=== PATIENT | female | born 1940 | race Caucasian/White ===

== ENCOUNTER 2018-02-14 10:59 | Day surgery (SDC) | payer MEDICARE ==
[2018-02-13 17:10] VITALS: BMI 30.5
[2018-02-14] MEDS ORDERED: Midazolam HCl 2 mg/2 ml Vial ONE (12:48)
[2018-02-14] MEDS ORDERED: Fentanyl 100 MCG/2 ML VIAL ONE (12:48)
[2018-02-14 12:49] LABS: #Eosinphils 0.6 thou/uL (0.0-0.7); #Lymphocytes 2.3 thou/uL (1.20-3.40); #Monocytes 0.7 thou/uL (0.11-0.59); #Neutrophils 4.6 thou/uL (1.40-6.50); %Basophils 0.4 % (0.0-1.0); %Eosinophils 7.4 % (0.0-10.0); %Lymphocytes 27.6 % (21.0-51.0); %Monocytes 8.4 % (0.0-10.0); %Neutrophils 56.2 % (42.0-75.0); Hemoglobin 13.6 g/dL (12.0-16.0); Mean Corpuscular HGB CONC 32.1 g/dL (32.0-36.0); Mean Corpuscular Volume 96.6 fl (81.0-99.0); Mean Platelet Volume 6.6 fL (7.4-10.4); Platelet Count 275 thou/uL (130-400); RBC Distribution Width 12.7 % (11.5-14.5); Red Blood Cell (RBC) Count 4.38 mill/uL (4.20-5.40); White Blood Cell (WBC) Count 8.3 thou/uL (4.8-10.8)
[2018-02-14 13:10] LABS: Anion Gap 18 mmol/L (10-20); BUN (Urea Nitrogen) 16 mg/dL (9.8-20.1); Calc. Creatinine Clearance 71 mL/min (70-130); Carbon Dioxide 21 mmol/L (23-31); Chloride 103 mmol/L (98-107); Estimated GFR-MDRD 60; Glucose 154 mg/dL (83-110); Potassium 4.9 mmol/L (3.5-5.1); Sodium 137 mmol/L (136-145)
--- NOTE | 2018-02-14 14:20 | MRI ---
MRI THORACIC SPINE WITHOUT CONTRAST: INDICATIONS: Mid back pain. COMPARISON: Prior MRI of the thoracic spine, dated 06/07/2017. FINDINGS: There is further loss of height involving the T8 vertebral compression fracture, now with approximate ly 75% total loss of body height, with some retropulsion of bone fragments from the posterior margin of T8 causing mild to moderate central canal narrowing with mild ventral contact of the thoracic spin al cord. No definite cord signal abnormality is evident. The compression fracture at T8 with loss of height and posterior retropulsion of bone fragments does induce moderate to severe bilateral neural foraminal narrowing at T8-T9. There is a new inferior endplate compression abnormality without significant loss of height involving the T7 vertebral level. No additional fracture is grossly evident. There is chronic superior endpl ate compression deformity of T10, which is stable from the prior exam. IMPRESSION: 1. Further loss of height of the previously seen T8 vertebral body compression fracture with moderat e to severe bilateral neural foraminal narrowing at T8-T9 and mild to moderate central canal narrowin g. 2. New inferior endplate compression fracture involving T7 without significant loss of height. 3. Chronic superior endplate compression deformity of T10. POS: [facility]
--- NOTE | 2018-02-16 08:53 | EKG ---
Test Reason : PREOP Blood Pressure : / mmHG Vent. Rate : 079 BPM Atrial Rate : 079 BPM P-R Int : 212 ms QRS Dur : 102 ms QT Int : 394 ms P-R-T Axes : 063 094 083 degrees QTc Int : 451 ms Sinus rhythm with 1st degree A-V block Rightward axis Anterior infarct (cited on or before 07-JUN-2017) Abnormal ECG When compared with ECG of 07-JUN-2017 11:36, Premature supraventricular complexes are no longer Present Nonspecific T wave abnormality no longer evident in Inferior leads Nonspecific T wave abnormality, worse in Lateral leads Confirmed by MARGARITA CALDERON MD ([id number]) on 02/16/2018 8:53:27 AM Referred By: ELAINE Confirmed By:MARGARITA CALDERON MD
== END 2018-02-14 15:35 | disposition home or self-care (01) ==
LOC: SDC/OP 10:59
PROVIDERS: ATTEND Specialist
DX: S22.060A Wedge compression fracture of T7-T8 vertebra, initial encounter for closed fracture (principal); Z79.51 Long term (current) use of inhaled steroids; Z79.82 Long term (current) use of aspirin; Z79.4 Long term (current) use of insulin; Z79.899 Other long term (current) drug therapy
CPT/HCPCS: 36415; 72146; 80048; 85025; 93005; 93010; J2250; J3010

== ENCOUNTER 2018-07-22 03:07 | Observation (INO) | payer MEDICARE ==
[2018-07-22 04:24] LABS: #Basophils 0.1 thou/uL (0.0-0.2); #Eosinphils 0.3 thou/uL (0.0-0.7); #Monocytes 0.7 thou/uL (0.11-0.59); #Neutrophils 4.3 thou/uL (1.40-6.50); %Basophils 0.8 % (0.0-1.0); %Eosinophils 4.2 % (0.0-10.0); %Lymphocytes 27.2 % (21.0-51.0); %Neutrophils 58.8 % (42.0-75.0); Mean Corpuscular HGB CONC 32.4 g/dL (32.0-36.0); Mean Corpuscular Hemoglobin 31.5 pg (27.0-31.0); Mean Corpuscular Volume 97.2 fL (78.0-98.0); Mean Platelet Volume 7.4 fL (7.4-10.4); Platelet Count 280 thou/uL (130-400); RBC Distribution Width 12.3 % (11.5-14.5); White Blood Cell (WBC) Count 7.4 thou/uL (4.8-10.8)
[2018-07-22 04:53] LABS: ALT (SGPT) 10 U/L (8-55); AST (SGOT) 13 U/L (5-34); Albumin 4.2 g/dL (3.4-4.8); Alkaline Phosphatase 63 U/L (40-150); Anion Gap 15 mmol/L (10-20); BUN (Urea Nitrogen) 24 mg/dL (9.8-20.1); Bilirubin, Total 0.5 mg/dL (0.2-1.2); Calc. Creatinine Clearance 0 mL/min (70-130); Calcium 9.8 mg/dL (7.8-10.44); Carbon Dioxide 24 mmol/L (23-31); Chloride 102 mmol/L (98-107); Estimated GFR-MDRD 46; Globulin 3.2 g/dL (2.4-3.5); Glucose 195 mg/dL (83-110); Potassium 4.4 mmol/L (3.5-5.1); Protein, Total 7.4 g/dL (6.0-8.3); Sodium 137 mmol/L (136-145)
[2018-07-22] MEDS ORDERED: Sulfameth/Trimethoprim DS 800-160mg TAB ONE (04:54)
--- NOTE | 2018-07-22 04:57 | PDOC.FPRHP ---
- History of Present Illness Chief Complaint: Abdominal pain History of Present Illness: Ms. Hsu presented to the [place] ED with reports of upper abdominal pain, fever/chills, and fatigue. An EKG was ordered and concerning for changes in T waves from previous studies. She was transferred to [facility] ED. Her pain has resolved, she does report multiple sores beneath her pannus that have not resolved as they normally do. The began a week ago and she put her normal salve on them, it did not help this time. She denies N/V/D, SOB, CP, weakness, or syncope. ED Course: CBC, CMP, EKG, wound Cx, BCx, LAx2, Trop/ckmb - Allergies/Adverse Reactions Allergies Allergy/AdvReac Type Severity Reaction Status Date / Time No Known Allergies Allergy Verified 02/13/18 17:10 - Home Medications Medication Instructions Recorded Confirmed Type Insulin NPH Hum/Reg Insulin HM 15 unit SC BID-AC 08/16/14 07/22/18 History [Novolin 70/30] Isosorbide Mononitrate [Imdur ER] 30 mg PO DAILY 08/16/14 07/22/18 History Levothyroxine Sodium 75 mcg PO DAILY 08/16/14 07/22/18 History Lisinopril 5 mg PO DAILY 08/16/14 07/22/18 History Omeprazole 40 mg PO DAILY 08/16/14 07/22/18 History Ranolazine [Ranexa] 500 mg PO BID 08/16/14 07/22/18 History cloNIDine HCl 0.1 mg PO PRN PRN 08/16/14 07/22/18 History metFORMIN HCl 1,000 mg PO BID-WM 08/16/14 07/22/18 History Nitroglycerin [Nitrostat] 0.4 mg SL Q5MIN PRN 03/27/16 07/22/18 History Aspirin [Aspirin Chewable] 81 mg PO DAILY 03/15/17 07/22/18 History Atorvastatin Calcium [Lipitor] 40 mg PO HS 03/15/17 07/22/18 History DULoxetine HCl [Duloxetine HCl] 60 mg PO DAILY 03/15/17 07/22/18 History Amiodarone [Cordarone] 100 mg PO DAILY 07/22/18 07/22/18 History Carvedilol [Coreg] 3.125 mg PO BID 07/22/18 07/22/18 History Celecoxib [Celebrex] 200 mg PO BID 07/22/18 07/22/18 History Cholecalciferol (Vitamin D3) 5,000 unit PO DAILY 07/22/18 07/22/18 History [Vitamin D3] Cyclobenzaprine [Flexeril] 10 mg PO TID 07/22/18 07/22/18 History Furosemide 20 mg PO BID 07/22/18 07/22/18 History Gabapentin 600 mg PO BID 07/22/18 07/22/18 History HYDROcodone Bit/APAP 5/325 [[place] 0.5 tab PO Q6HR PRN 07/22/18 07/22/18 History 5/325] - History PMHx:CAD, DMII, hypothyroid, HLD, HTN, Asthma, depression PSHx: CT w/ stents 2016, CABG, Back surgery FHx: Social: chews and smokes tobacco - Review of Systems General: reports: fever/chills, fatigue. denies: weight/appetite/sleep changes Eyes: reports: vision changes. denies: eye pain ENT: denies: nasal congestion, rhinorrhea Respiratory: denies: cough, shortness of breath Cardiovascular: denies: chest pain, palpitation, edema Gastrointestinal: reports: abdominal pain. denies: nausea, vomiting, diarrhea Genitourinary: denies: incontinence, dysuria Skin: denies: rashes, lesions Musculoskeletal: denies: pain, tenderness Neurological: denies: numbness, syncope, weakness - Vital signs BP: [161/59] HR: [74] RR: [24] Tmax: [98] Pox: [94]% on [RA] Wt: [90.72kg] - Physical Exam Constitutional: NAD, well developed HEENT: normocephalic and atraumatic, grossly normal vision, grossly normal hearing Neck: supple, trachea midline Chest: no-tender to palpation, no lesions Heart: RRR, normal S1/S2, no murmurs/rubs/gallops, pulses present Lungs: CTAB, no respiratory distress, good air movement Abdomen: soft, non-tender Musculoskeletal: normal structure, normal tone Neurological: no focal deficit, CN II-XII intact Skin: no rash/lesions, capillary refill <2 seconds Heme/Lymphatic: no unusual bruising or bleeding, no petechia Psychiatric: normal mood and affect FMR H&P: Results - Labs Result Diagrams: 07/22/18 04:04 07/22/18 04:04 Lab results: WBC 7.4 thou/uL (4.8-10.8) 07/22/18 04:04 Hgb 12.0 g/dL (12.0-16.0) 07/22/18 04:04 Hct 36.9 % (36.0-47.0) 07/22/18 04:04 MCV 97.2 fL (78.0-98.0) 07/22/18 04:04 Plt Count 280 thou/uL (130-400) 07/22/18 04:04 Neutrophils % 58.8 % (42.0-75.0) 07/22/18 04:04 Lactic Acid 2.4 mmol/L (0.5-2.2) H 07/22/18 04:04 FMR H&P: A/P - Problem List (1) Nonspecific ST-T wave electrocardiographic changes Current Visit: Yes Status: Acute Code(s): R94.31 - ABNORMAL ELECTROCARDIOGRAM [ECG] [EKG] (2) Skin infection Current Visit: Yes Status: Acute Code(s): L08.9 - LOCAL INFECTION OF THE SKIN AND SUBCUTANEOUS TISSUE, UNSP (3) Chronic pain syndrome Current Visit: No Status: Acute Code(s): G89.4 - CHRONIC PAIN SYNDROME (4) Diabetes type 2, controlled Current Visit: No Status: Chronic Code(s): E11.9 - TYPE 2 DIABETES MELLITUS WITHOUT COMPLICATIONS (5) Dyslipidemia Current Visit: No Status: Chronic Code(s): E78.5 - HYPERLIPIDEMIA, UNSPECIFIED (6) Hypertension Current Visit: No Status: Chronic Code(s): I10 - ESSENTIAL (PRIMARY) HYPERTENSION - Plan 1. non-specific flattening of T wave, w/o chest pain - change in EKG per [place] ER - significant cardiac hx - trend troponins x3, EKG for chest pain - observation on telemetry 2. skin infection - chronic sores on pannus - Bactrim DS PO - wound care consult 3. Chronic pain syndrome - possible cause of pain 4. DMII - continue home meds 5. HLD - continue home meds 6. HTN - continue home meds Disposition/LOS: down trend troponins, DC on bactrim later today FMR H&P: Upper Level - Pertinent history 78F presents for sores under abdominal and pelvic pannus. She feels they had started developing this week but unsure of onset as she was unable to visualize the area. She endorses subjective chills and fever. She says specifically denies dysuria, sob or chest pain. Her PMHx includes CAD, CT in 2016, DM2, hypothyrodism, hld, HTN, chronic back pain, asthma, obesity, anxiety, depression PSHx: Hysterectomy, back surgery Social: Chews tobacco and smoke tobacco. Smoke 30 year, 1/2 pack a day. - Pertinent findings Gen: Alert, oriented CV: RRR with no apparent m/g/r Resp: CTA bilaterally Abd: Obese, multiple sores on underside of pannus. Largest approximately dime side, erythematous and weeping clear fluid. Sores are macerated skin break down with no obvious infection. There are also sores between her thigh folds EKG: In comparison to previous ekg, there are some new t wave flattening, not associated with t wave elevation/depression Trops: .022>.035 UA: Positive for WBC, bacteria, leuk esterase Creatinine: 1.13 - Plan Date/Time: 07/22/18 0451 I, [Nikolai Ji], have evaluated this patient and agree with findings/plan as outlined by corporate intern resident. Pertinent changes/additions are listed here. 1. Abd sores - Patient is diabetic, will start on bactrim DS for MRSA coverage. Zinc paste to promote wound healing. Nystatin cream to help prevent harris - Not obviously infected at this time 2. Elevated Troponin - Patient EKG and HPI did not suggest cardiac issues. Patient does have PMHx of CAD - Trop incidentally was found to be elevated. Will trend trops for resolution. - Continue Ranexa and Imdur 3. Asymptomatic bacturia - UA suggest infection but patient asymptomatic - Bactrim will cover UTI incidentally. Will not obtain culture as patient is otherwise asymptomatic and treatment not indicated 4. CKD 3 - Elevated creatinine over last 5 months. - Monitor with routine lab, advise hydration. May consider reducing patient's diuretic/discussion with PCP Dr. Florence. Possible that diuretics were added recently and account for her Cr increase. 5. Hypothyrodism - Continue levothyroxine 6. HTN - Continue lisinopril, carvedilol and catapres, may consider reducing diuretics. 7. Depression - Continue cymbalta 8. HLD -Continue atorvastatin 9. Gerd - Continue omeprazole 10: DM2: Continue home med 11: Heart dysrhythmia: Patient can not specify, on amiodarone so likely afib. Follow up with her PCP for clarification. Continue medication at this time, admit to tele.
[2018-07-22 05:36] LABS: Troponin I 0.035 ng/mL (< 0.028)
[2018-07-22] MEDS ORDERED: Zinc Oxide 20% Oint 30 GM TUBE TOP PRN (06:33)
[2018-07-22] MEDS ORDERED: Acetaminophen 325 MG TAB PO PRN (06:33)
[2018-07-22 06:43] VITALS: BMI 32.5
[2018-07-22 07:59] LABS: Troponin I 0.023 ng/mL (< 0.028)
[2018-07-22 08:09] VITALS: BP 166/72; TEMP 98.2
[2018-07-22 08:14] LABS: Lactic Acid 1.8 mmol/L (0.5-2.2)
[2018-07-22] MEDS: Nystatin/Triamcinolone Ointment 15 GM TUBE TOP SCH ×2 (08:35→10:12)
[2018-07-22] MEDS ORDERED: Sulfameth/Trimethoprim DS 800-160mg TAB PO SCH (09:00)
--- NOTE | 2018-07-22 11:10 | HP ---
CHIEF COMPLAINT: Left lower quadrant skin and abdominal pain. HISTORY OF PRESENT ILLNESS: Wen Hsu is a very pleasant 78-year-old, obese, type 2 diabetic, who p resented to our institution with pain in the left lower quadrant of her abdomen. It was actually in the skin related to a pannus, which had some excoriations. She was admitted for observation and furt her treatment. She had no chest pain. She had no new symptoms of shortness of breath or nausea. Her EKG showed onl y nonspecific ST flattening and slow R-wave progression, likely secondary to her body habitus. PHYSICAL EXAMINATION: GENERAL: She was afebrile. Blood pressure is 143/70, pulse rate was 70, respirations were 18. She is awake, alert, in no distress. EARS, NOSE, AND THROAT: No signs of infection. NECK: Supple. CARDIAC: Heart rhythm regular, S4 gallop. No murmur or rub noted. LUNGS: Very diminished. Again, likely due to body habitus. No rales, rhonchi or wheezes. No respi ratory distress. ABDOMEN: Flat and soft. She does have a pannus in her lower abdomen and pelvis with some erythema a nd excoriations. No yoni infection. NEUROLOGICALLY: No focal deficits. CBC: White count was 7400, hemoglobin 12, hematocrit 36.9, MCV is 97.2. Chemistries: Sodium 137, p otassium 4.4, chloride 102, bicarbonate 24, BUN 24, creatinine 1.13. Her lactic acid was initially s lightly elevated at 2.4, is now down to 1.8. Her troponin trended from the barely out of the negativ e range of 0.035 down to 0.023. ASSESSMENT: Soft tissue infection. PLAN: Admit, treat.
--- NOTE | 2018-07-23 11:16 | DIS-2 ---
DATE OF ADMISSION: 07/22/2018 DATE OF DISCHARGE: 07/22/2018 ADMITTING ATTENDING: Benji Al M.D. DISCHARGE ATTENDING: Ke Freitas M.D. RESIDENT: Óscar Denis D.O. CONSULTATIONS: None. PROCEDUES: None. ADMITTING DIAGNOSES: 1. Atypical chest pain. 2. Panniculitis. SECONDARY DIAGNOSES: Chronic pain syndrome, type 2 diabetes, dyslipidemia, and hypertension. DISCHARGE MEDICATIONS: Clonidine 0.1 mg p.o. p.r.n. hypertension, metformin 1000 mg p.o. b.i.d., levothyroxine 75 mcg p.o. daily, omeprazole 40 mg p.o. b.i.d., and Novolin 70/30 of 15 units subcutaneous b.i.d. a.c., lisinopril 5 mg p.o. daily, Imdur 30 mg p.o. daily, Ranexa 500 mg p.o. b.i.d., Nitrostat 0.4 mg sublingual every 5 minutes p.r.n. chest pain, duloxetine 60 mg p.o. daily, atorvastatin 40 mg at bedtime, aspirin 81 mg p.o. daily, amiodarone 100 mg p.o. daily, Lasix 20 mg p.o. b.i.d., cholecalciferol 5000 units p.o. daily, gabapentin 600 mg p.o. b.i.d., Celebrex 200 mg p.o. b.i.d., hydrocodone 5/325 of 0.5 tabs p.o. q.6 hours p.r.n. pain, Flexeril 10 mg p.o. t.i.d., Coreg 3.125 mg p.o. b.i.d., nystatin and triamcinolone ointment 1 gram topical t.i.d. x10 days, and Bactrim-DS 1 tab p.o. b.i.d. x14 days. HOSPITAL COURSE: This is a 78-year-old female who presents to the [facility] with complaint of lower abdominal skin pain episode of what appeared to be of panniculitis with an associated fungal and/or bacterial skin infection. However, there is some concern for the patient's possible cardiac symptoms, as there is general abdominal pain and which can be associated with angina in a diabetic patient. Additionally on EKG, there was a nonspecific T-wave flattening. Therefore, the patient was sent to this facility for further montitoring. While here, troponins were initially indeterminate at 0.035, and then down trending after initial elevation. Patient had no chest pain, no EKG changes and was monitored on tele with no concerning rhythms and no concerns for acute coronary syndrome. The patient was treated for panniculitis with both Bactrim and nystatin cream. After observation throughout the day, it was felt patient was safe to go home with treatment for bacterial infection. DISCHARGE INSTRUCTIONS: 1. Location: Home. 2. Diet: Heart healthy and carb. 3. Activity: ad darrell. 4. Follow up with PCP within a week. BENJI
== END 2018-07-22 13:15 | disposition home or self-care (01) ==
LOC: ERS 03:07 → 2SW 05:41
PROVIDERS: ADMIT Family Medicine; ATTEND Family Medicine
DX: R07.89 Other chest pain (principal); R10.32 Left lower quadrant pain; M79.3 Panniculitis, unspecified; E11.622 Type 2 diabetes mellitus with other skin ulcer; L98.499 Non-pressure chronic ulcer of skin of other sites with unspecified severity; I25.10 Atherosclerotic heart disease of native coronary artery without angina pectoris; E03.9 Hypothyroidism, unspecified; E78.5 Hyperlipidemia, unspecified; J45.909 Unspecified asthma, uncomplicated; F32.9 Major depressive disorder, single episode, unspecified; I25.2 Old myocardial infarction; F17.220 Nicotine dependence, chewing tobacco, uncomplicated; L08.89 Other specified local infections of the skin and subcutaneous tissue; G89.4 Chronic pain syndrome; F17.210 Nicotine dependence, cigarettes, uncomplicated; I12.9 Hypertensive chronic kidney disease with stage 1 through stage 4 chronic kidney disease, or unspecified chronic kidney disease; E11.22 Type 2 diabetes mellitus with diabetic chronic kidney disease; N18.3 Chronic kidney disease, stage 3 (moderate); E66.9 Obesity, unspecified; Z68.32 Body mass index [BMI] 32.0-32.9, adult; Z79.82 Long term (current) use of aspirin; Z79.4 Long term (current) use of insulin; Z79.899 Other long term (current) drug therapy; Z95.5 Presence of coronary angioplasty implant and graft; Z95.1 Presence of aortocoronary bypass graft
CPT/HCPCS: 36415; 36416; 80053; 83605; 84484; 85025; 87040; 87070; 87077; 87186; 87205; 93005; 96360

== ENCOUNTER 2018-08-07 13:41 | Inpatient (IN) | payer MEDICARE ==
[2018-08-07 14:41] LABS: Bilirubin Negative (Negative); Blood, Urine Negative (Negative); Clarity CLEAR (Clear); Glucose, Urine (Dipstick) Negative (Negative); Leukocyte Negative (Negative); Nitrite Negative (Negative); Protein, Urine (Dipstick) Negative (Neg-Trace); Urobilinogen 0.2 mg/dL (0.2-1.0); pH, Urine 5.5 (5.0-9.0)
--- NOTE | 2018-08-07 15:13 | CT ---
CT HEAD NONCONTRAST DATE: 08/07/18 HISTORY: Fall. Head injury. FINDINGS: No comparison. There is no evidence of acute intracranial hemorrhage or infarct. Chronic ischemic small vessel disea se and mild diffuse cortical atrophy. Physiologic calcification at each basal ganglia. No mass effect or shift of midline structures. Visualized paranasal sinuses remain well aerated. IMPRESSION: No acute intracranial abnormalities are demonstrated. POS: [facility]
--- NOTE | 2018-08-07 15:18 | RAD ---
RIGHT RIBS AND PA CHEST: Date: 08/07/18 PA chest and right ribs obtained for a total of 4 views. INDICATION: Trauma. Fall with injury to right chest. FINDINGS: The lungs appear well aerated and clear. No pneumothorax or effusion identified. No evidence of rib fracture identified. No other rib lesions seen. IMPRESSION: No acute findings. POS: [facility]
--- NOTE | 2018-08-07 15:19 | CT ---
CT SCAN CERVICAL SPINE: Multiple axial tomograms are obtained through the cervical spine with multiplanar reconstruction. INDICATION: Fall with injury to neck. COMPARISON: No comparison cervical spine exam. FINDINGS: Cervical vertebrae maintain height. There is anterolisthesis of C3 on C4 measured at approximately 3 mm and there is anterolisthesis of C4 on C5 measured at approximately 3 mm. Slight posterior listhe sis of C5 on C6 is noted. Loss of disk space at C5-6 and C6-7 with prominent hypertrophic spurring a t these levels. Posterior hypertrophic spondylitic changes are prominent at these levels. Prominent facet hypertrophy throughout. No evidence of acute fracture identified. IMPRESSION: Degenerative changes of the cervical spine as noted with anterolisthesis at C3-4 and C4-5. No eviden ce of acute fracture. POS: [facility]
[2018-08-07 16:00] LABS: #Eosinphils 0.3 thou/uL (0.0-0.7); #Lymphocytes 1.5 thou/uL (1.20-3.40); #Monocytes 1.1 thou/uL (0.11-0.59); %Basophils 0.2 % (0.0-1.0); %Eosinophils 2.2 % (0.0-10.0); %Lymphocytes 12.8 % (21.0-51.0); %Monocytes 9.1 % (0.0-10.0); %Neutrophils 75.7 % (42.0-75.0); Hemoglobin 12.5 g/dL (12.0-16.0); Mean Corpuscular HGB CONC 30.6 g/dL (32.0-36.0); Mean Corpuscular Hemoglobin 30.5 pg (27.0-31.0); Mean Corpuscular Volume 99.5 fL (78.0-98.0); Mean Platelet Volume 7.3 fL (7.4-10.4); Platelet Count 281 thou/uL (130-400); RBC Distribution Width 12.7 % (11.5-14.5); White Blood Cell (WBC) Count 11.8 thou/uL (4.8-10.8)
[2018-08-07 16:12] LABS: ALT (SGPT) 16 U/L (8-55); AST (SGOT) 25 U/L (5-34); Albumin 3.9 g/dL (3.4-4.8); Alkaline Phosphatase 53 U/L (40-150); Anion Gap 17 mmol/L (10-20); BUN (Urea Nitrogen) 33 mg/dL (9.8-20.1); Bilirubin, Total 0.5 mg/dL (0.2-1.2); CK (CPK) 71 U/L (29-168); Calc. Creatinine Clearance 0 mL/min (70-130); Calcium 9.1 mg/dL (7.8-10.44); Carbon Dioxide 20 mmol/L (23-31); Chloride 106 mmol/L (98-107); Estimated GFR-MDRD 24; Globulin 2.6 g/dL (2.4-3.5); Glucose 116 mg/dL (83-110); Lipase 95 U/L (8-78); Potassium 5.3 mmol/L (3.5-5.1); Protein, Total 6.5 g/dL (6.0-8.3); Sodium 138 mmol/L (136-145)
[2018-08-07 16:16] LABS: CKMB 2.4 ng/mL (0-6.6); Troponin I Less than 0.010 ng/mL (< 0.028)
--- NOTE | 2018-08-07 17:48 | PDOC.FPRHP ---
- History of Present Illness History of Present Illness: Pt is a 78 y/o F with DM2, CAD, HTN presenting for syncope. Admits to several episodes of LOC in the past 4 days and she fell today with LOC and was found down covered in feces. States it occurs at random times during the day. Associated falls, rib pain R, and SOB. Denies chest pain, leg edema, dysuria, dizziness, focal weakness. One fall today she partiall does remember. She also has rib soreness from the fall. CT brain/neck are negative as well a rib XR. She recently was treated for an abscess on her pannus this week with Dr Hansen. Currently admits to rib pain bu not dizziness or other symptoms. she was given 1L of fluid in the ED and her BP improved from 70/48 --107/71. - Allergies/Adverse Reactions Allergies Allergy/AdvReac Type Severity Reaction Status Date / Time No Known Allergies Allergy Verified 02/13/18 17:10 - Home Medications Medication Instructions Recorded Confirmed Type Insulin NPH Hum/Reg Insulin HM 15 unit SC BID-AC 08/16/14 08/07/18 History [Novolin 70/30] Isosorbide Mononitrate [Imdur ER] 30 mg PO DAILY 08/16/14 08/07/18 History Levothyroxine Sodium 75 mcg PO DAILY 08/16/14 08/07/18 History Lisinopril 5 mg PO DAILY 08/16/14 08/07/18 History Omeprazole 40 mg PO DAILY 08/16/14 08/07/18 History Ranolazine [Ranexa] 500 mg PO BID 08/16/14 08/07/18 History cloNIDine HCl 0.1 mg PO PRN PRN 08/16/14 08/07/18 History metFORMIN HCl 1,000 mg PO BID-WM 08/16/14 08/07/18 History Nitroglycerin [Nitrostat] 0.4 mg SL Q5MIN PRN 03/27/16 08/07/18 History Aspirin [Aspirin Chewable Tablet] 81 mg PO DAILY 03/15/17 08/07/18 History Atorvastatin Calcium [Lipitor] 40 mg PO HS 03/15/17 08/07/18 History DULoxetine HCl [Duloxetine HCl] 60 mg PO DAILY 03/15/17 08/07/18 History Amiodarone [Cordarone] 100 mg PO DAILY 07/22/18 08/07/18 History Carvedilol [Coreg] 3.125 mg PO BID 07/22/18 08/07/18 History Celecoxib [Celebrex] 200 mg PO BID 07/22/18 08/07/18 History Cholecalciferol (Vitamin D3) 5,000 unit PO DAILY 07/22/18 08/07/18 History [Vitamin D3] Cyclobenzaprine [Flexeril] 10 mg PO TID 07/22/18 08/07/18 History Furosemide 20 mg PO BID 07/22/18 08/07/18 History Gabapentin 600 mg PO BID 07/22/18 08/07/18 History HYDROcodone Bit/APAP 5/325 [[place]] 0.5 tab PO Q6HR PRN 07/22/18 08/07/18 History - History PMHx:as mentioned above PSHx: n/a FHx:n/a Social: nonsmoker - Review of Systems General: denies: fever/chills, weight/appetite/sleep changes, night sweats, fatigue Eyes: denies: eye pain ENT: denies: rhinorrhea Respiratory: reports: shortness of breath. denies: cough, congestion, exercise intolerance Cardiovascular: denies: chest pain, palpitation, edema, paroxysmal nocturnal dyspnea, orthopnea Gastrointestinal: denies: nausea, vomiting, diarrhea, constipation Genitourinary: denies: incontinence, dysuria, polyuria Skin: reports: other. denies: rashes Musculoskeletal: denies: pain, tenderness, stiffness Neurological: reports: syncope, weakness. denies: numbness, seizure Psychological: denies: anxiety, depression - Vital signs BP: [] HR: [] RR: [] Tmax: [] Pox: []% on [] Wt: [] - Physical Exam Constitutional: NAD, awake, alert and oriented HEENT: normocephalic and atraumatic, PERRLA Neck: supple, trachea midline Heart: RRR, normal S1/S2, no murmurs/rubs/gallops Lungs: CTAB, no respiratory distress, good air movement -Lungs: ronchi b/l mild Abdomen: soft, non-tender, bowel sounds present -Abdomen: open would with purulent drainage in pannus ~2cm Musculoskeletal: normal structure, normal tone Neurological: no focal deficit, CN II-XII intact Skin: no rash/lesions, good turgor, capillary refill <2 seconds Heme/Lymphatic: no unusual bruising or bleeding, no purpura, no petechia Psychiatric: normal mood and affect, good judgment and insight FMR H&P: Results - Labs Result Diagrams: 08/07/18 15:46 08/07/18 21:58 Lab results: WBC 11.8 thou/uL (4.8-10.8) H 08/07/18 15:46 Hgb 12.5 g/dL (12.0-16.0) 08/07/18 15:46 Hct 40.8 % (36.0-47.0) 08/07/18 15:46 MCV 99.5 fL (78.0-98.0) H 08/07/18 15:46 Plt Count 281 thou/uL (130-400) 08/07/18 15:46 Neutrophils % 75.7 % (42.0-75.0) H 08/07/18 15:46 Sodium 138 mmol/L (136-145) 08/07/18 15:46 Potassium 5.3 mmol/L (3.5-5.1) H 08/07/18 15:46 Chloride 106 mmol/L (98-107) 08/07/18 15:46 Carbon Dioxide 20 mmol/L (23-31) L 08/07/18 15:46 BUN 33 mg/dL (9.8-20.1) H 08/07/18 15:46 Creatinine 1.97 mg/dL (0.6-1.1) H 08/07/18 15:46 Glucose 116 mg/dL (83-110) H 08/07/18 15:46 Lactic Acid 4.0 mmol/L (0.5-2.2) H 08/07/18 15:46 Calcium 9.1 mg/dL (7.8-10.44) 08/07/18 15:46 Total Bilirubin 0.5 mg/dL (0.2-1.2) 08/07/18 15:46 AST 25 U/L (5-34) 08/07/18 15:46 ALT 16 U/L (8-55) 08/07/18 15:46 Alkaline Phosphatase 53 U/L (40-150) 08/07/18 15:46 Creatine Kinase 71 U/L (29-168) 08/07/18 15:46 CK-MB (CK-2) 2.4 ng/mL (0-6.6) 08/07/18 15:47 Serum Total Protein 6.5 g/dL (6.0-8.3) 08/07/18 15:46 Albumin 3.9 g/dL (3.4-4.8) 08/07/18 15:46 Lipase 95 U/L (8-78) H 08/07/18 15:46 Urine Ketones Negative mg/dL (Negative) 08/07/18 14:27 Urine Blood Negative (Negative) 08/07/18 14:27 Urine Nitrite Negative (Negative) 08/07/18 14:27 Ur Leukocyte Esterase Negative (Negative) 08/07/18 14:27 FMR H&P: A/P - Problem List (1) Hypovolemic shock Current Visit: Yes Status: Acute Code(s): R57.1 - HYPOVOLEMIC SHOCK (2) Syncope Current Visit: Yes Status: Acute Code(s): R55 - SYNCOPE AND COLLAPSE (3) Panniculitis Current Visit: Yes Status: Acute Code(s): M79.3 - PANNICULITIS, UNSPECIFIED (4) 1st degree AV block Current Visit: Yes Status: Acute Code(s): I44.0 - ATRIOVENTRICULAR BLOCK, FIRST DEGREE (5) Diabetes type 2, controlled Current Visit: No Status: Chronic Code(s): E11.9 - TYPE 2 DIABETES MELLITUS WITHOUT COMPLICATIONS (6) Dyslipidemia Current Visit: No Status: Chronic Code(s): E78.5 - HYPERLIPIDEMIA, UNSPECIFIED (7) Hypothyroidism Current Visit: No Status: Chronic Code(s): E03.9 - HYPOTHYROIDISM, UNSPECIFIED - Plan 1. Septic/Hypovolemic shock -S/p 1L in ED with improved BPs. 500cc pending and will start broad spectrum abx(with NS) and await culture results. Gentle fluid repletion. 2. Syncope w/ fall- Likely 2/2 #1. Given EKG findings, we cannot r/o cardiac origin and will consider cardiology consult. She sees Dr Vasquez, but was planning to switch providers. Monitor on Tele. CT brain and neck WNL. Pt A&O x3 during my encounter. 3. 1st Degree AV Block/Bradycardia- Will repeat EKG. Consider cardiology consult. Is on Coreg which could be causing this, but is unknown if she has CHF as there is no ECHO present. 4. CAD - Continue home medications. No acute chest pain. 5. JAMAL - likely prerenal. Will obtain urine studies and Monitor renal function closely. 6. DM2 - SSI 7. HTN - hold home meds, hypotensive currently 8. Hypothyroidism - Resume home meds 9. Rib Contusion - Tylenol for pain. XR negative. DVT PPX: Lovenox Attending Addendum - Attending Addendum Date/Time: 08/07/181929 I personally evaluated the patient and discussed the management with Dr. Jhaveri. I agree with the History, Examination, Assessment and Plan documented above with any addition or exceptions noted below.
[2018-08-07 18:21] LABS: Anion Gap 14 mmol/L (10-20); BUN (Urea Nitrogen) 34 mg/dL (9.8-20.1); Calc. Creatinine Clearance 0 mL/min (70-130); Carbon Dioxide 22 mmol/L (23-31); Chloride 105 mmol/L (98-107); Estimated GFR-MDRD 25; Glucose 126 mg/dL (83-110); Potassium 5.6 mmol/L (3.5-5.1); Sodium 135 mmol/L (136-145)
[2018-08-07 18:31] LABS: Lactic Acid 1.5 mmol/L (0.5-2.2)
[2018-08-07] MEDS ORDERED: Dextrose 5% in Water 1,000 ML IV PRN (18:51)
[2018-08-07] MEDS ORDERED: Acetaminophen 325 MG TAB PO PRN (18:51)
[2018-08-07] MEDS ORDERED: diphenhydrAMINE 50 MG/ML VIAL IVP PRN (18:51)
[2018-08-07] MEDS ORDERED: Dextrose 50% Abboject 50 ML SYRINGE SLOW IVP PRN (18:51)
[2018-08-07 19:48] LABS: Lactic Acid 1.3 mmol/L (0.5-2.2)
[2018-08-07] MEDS ORDERED: Cyclobenzaprine 10 MG TAB PO SCH (20:30)
[2018-08-07] MEDS ORDERED: Ketorolac Tromethamine 30 MG/ML VIAL IVP SCH (20:30)
[2018-08-07 20:31] LABS: Osmolality, Urine 383 mOsm/kg (300-900)
[2018-08-07 20:34] LABS: Sodium, Urine 126 mmol/L (Not Available)
[2018-08-07] MEDS ORDERED: Carvedilol 3.125 MG TAB PO SCH (21:00)
[2018-08-07] MEDS: Sodium Chloride 0.9% 1,000 ML IV SCH (21:35)
[2018-08-07] MEDS: Vancomycin HCl 1.25 GM in Sodium Chloride 0.9% 250 ML 250 ML IVPB SCH (21:36)
[2018-08-07] MEDS: Piperacillin/Tazobactam 2.25 GM in Sodium Chloride 0.9% 100 ML IVPB SCH (21:36)
[2018-08-07] MEDS: Atorvastatin Calcium 40 MG TAB PO SCH (21:37)
[2018-08-07 22:21] LABS: Anion Gap 13 mmol/L (10-20); BUN (Urea Nitrogen) 33 mg/dL (9.8-20.1); Calc. Creatinine Clearance 34 mL/min (70-130); Calcium 8.7 mg/dL (7.8-10.44); Carbon Dioxide 19 mmol/L (23-31); Chloride 105 mmol/L (98-107); Estimated GFR-MDRD 24; Glucose 241 mg/dL (83-110); Potassium 5.4 mmol/L (3.5-5.1); Sodium 132 mmol/L (136-145)
[2018-08-08] MEDS ORDERED: Morphine 4 MG/ML VIAL ONE (04:31)
[2018-08-08] MEDS ORDERED: Prevnar 13-Val Conj/PF 0.5 ML SYRINGE IM ONE (09:00)
[2018-08-08] MEDS: Piperacillin/Tazobactam 2.25 GM in Sodium Chloride 0.9% 100 ML IVPB SCH ×3 (11:40→20:32)
[2018-08-08] MEDS: Amiodarone 200 MG TAB PO SCH (11:41)
[2018-08-08] MEDS: Enoxaparin Sodium 40 MG/0.4 ML SYRINGE SC SCH (11:45)
[2018-08-08] MEDS: Sodium Chloride 0.9% 1,000 ML IV SCH (11:45)
[2018-08-08 12:51] LABS: Anion Gap 14 mmol/L (10-20); BUN (Urea Nitrogen) 32 mg/dL (9.8-20.1); Calc. Creatinine Clearance 37 mL/min (70-130); Calcium 8.8 mg/dL (7.8-10.44); Carbon Dioxide 19 mmol/L (23-31); Chloride 106 mmol/L (98-107); Estimated GFR-MDRD 26; Glucose 143 mg/dL (83-110); Potassium 5.3 mmol/L (3.5-5.1); Sodium 134 mmol/L (136-145)
--- NOTE | 2018-08-08 14:40 | PDOC.EVN ---
Event Note - Event Note Event Note: consulted Cardiology to Eval if patient would benefit from pacemaker - x4 syncope with fall in the last week, new Type I AV block since last admit , sinus bradycardia overnight Still on Vanc/Zosyn - initial lactic acid was 4.0 -> 1.3 - panniculitus + UTI - stay broad spectrum until cultures return hyper K - kayexelate x2 today - recheck bmp in AM Wound care consult for Panniculitus
[2018-08-08] MEDS ORDERED: Cyclobenzaprine 10 MG TAB ONE (15:28)
[2018-08-08] MEDS ORDERED: Cyclobenzaprine 10 MG TAB PO SCH (15:30)
--- NOTE | 2018-08-08 16:49 | CON ---
DATE OF CONSULTATION: 08/08/2018 REASON FOR CONSULTATION: Syncope. HISTORY OF PRESENT ILLNESS: Ms. Hsu is a pleasant 78-year-old woman who is a patient of Dr. Georges reed. She has a history of CAD status post bypass surgery in addition to multiple stents placed. Sh e states she has had a recent fall. The history is somewhat vague. She denies a chest pain or press ure. She does describe right-sided flank pain. It is difficult to pinpoint the symptoms noted prior to the fall. She is unsure whether she tripped and fell. She is also unsure whether she loses cons ciousness. A new first degree AV block was noted which is of no significance pertaining to syncope. PAST MEDICAL HISTORY: Diabetes mellitus, CAD as described above, hypertension, cardiomyopathy, hyper lipidemia, spinal stenosis. HOME MEDICATIONS: Include Ranexa, Catapres, tramadol, Flovent, aspirin, lisinopril, Effient, Cymbalt a, NovoLog, omega 3, Colace. ALLERGIES: None. FAMILY HISTORY: Positive for CAD. SOCIAL HISTORY: No current tobacco or alcohol use. REVIEW OF SYSTEMS: Ten point review of system reviewed and as above, otherwise negative. PHYSICAL EXAMINATION: VITAL SIGNS: Blood pressure 127/91, pulse 85, temperature 97.8. GENERAL: Patient is a pleasant female who is in no acute distress. The patient appears her stated a ge. NEUROLOGIC: The patient is alert and oriented times 3 with no focal neurologic deficits. HEENT: Sclerae without icterus. Mouth has moist mucous membranes with normal pallor. NECK: No JVD. Carotid upstroke brisk. No bruits bilaterally. LUNGS: Clear to auscultation with unlabored respirations. BACK: No scoliosis or kyphosis. CARDIAC: Regular rate and rhythm with normal S1 and S2. No S3 or S4 noted. No significant rubs, mu rmurs, thrills, or gallops noted throughout the precordium. PMI is not displaced. There is no shawn ternal heave. ABDOMEN: Pain noted to palpation of the right flank region. EXTREMITIES: 2+ femoral and 2+ dorsalis pedis pulses. No cyanosis, clubbing, or edema. SKIN: No gross abnormalities. PERTINENT LABS: Hemoglobin 12.5. Sodium 134, potassium 5.3, creatinine 1.89. IMPRESSION: 1. Syncope of unknown etiology. 2. Coronary artery disease. 3. Abnormal electrocardiogram. 4. Right flank pain. RECOMMENDATIONS: The first degree AV block clinical and significance related to recent syncopal epis ode. She has no other blocks present. The history is somewhat vague. From a CV standpoint, we woul d recommend a 3-week outpatient event recorder. Would recommend primary team reach out to her primar y grain mixer for arrangement. We would monitor overnight. We would also seek cause to her right-s ided flank pain. Her rib series was negative. Hemoglobin stable. She is currently on antiplatelet therapy. We would consider a CT scan. Given her creatinine and GFR, it would be contraindicated wit h contrast.
[2018-08-08 17:21] LABS: Hemoglobin 10.5 g/dL (12.0-16.0); Mean Corpuscular HGB CONC 31.7 g/dL (32.0-36.0); Mean Corpuscular Hemoglobin 31.9 pg (27.0-31.0); Mean Platelet Volume 7.7 fL (7.4-10.4); Platelet Count 246 thou/uL (130-400); RBC Distribution Width 12.8 % (11.5-14.5); Red Blood Cell (RBC) Count 3.31 mill/uL (4.20-5.40); White Blood Cell (WBC) Count 8.1 thou/uL (4.8-10.8)
[2018-08-08 17:57] LABS: Band 7 % (5-11); Eosinophils 3 % (0-10); Lymphocytes 19 % (21-51); Monocytes 6 % (0-10); Neutrophil 65 % (42-75); PLT Morphology Comment Appears Adequate
[2018-08-08 17:58] LABS: MDiff Complete? YES
--- NOTE | 2018-08-08 18:01 | CT ---
CT OF ABDOMEN AND PELVIS PERFORMED WITH CONTRAST ENHANCEMENT: 08/08/18 HISTORY: Right flank pain after a fall. Patient is on blood thinners. COMPARISON: A 07/22/18 exam. The lung bases show a very small right pleural effusion. No pneumothorax. No rib frac tures are visualized. The liver, spleen, pancreas and gallbladder regions appear unremarkable given the limitations of a no ncontrast exam. Right and left adrenal glands and right and left kidneys are normal in appearance. No free fluid. CT OF PELVIS PERFORMED WITHOUT CONTRAST ENHANCEMENT: Sigmoid diverticulosis is noted. Uterus appears absent. No evidence for any adenopathy or mass. There are arthritic changes of the spine. Old compression injury at T8 is noted. IMPRESSION: No acute abnormalities of the abdomen or pelvis. POS: [facility]
[2018-08-08] MEDS: HumaLOG 300 UNITS/3 ML VIAL SC PRN (19:05)
[2018-08-08] MEDS: Vancomycin HCl 1.25 GM in Sodium Chloride 0.9% 250 ML 250 ML IVPB SCH (20:43)
[2018-08-08] MEDS: Atorvastatin Calcium 40 MG TAB PO SCH (20:43)
[2018-08-08] MEDS ORDERED: Morphine 4 MG/ML VIAL SLOW IVP PRN (22:23)
[2018-08-08] MEDS ORDERED: Lidocaine 5% Patch TD SCH (23:45)
[2018-08-09] MEDS: Morphine 4 MG/ML VIAL SLOW IVP PRN ×2 (00:14→06:06)
[2018-08-09] MEDS: Lidocaine 5% Patch TD SCH (00:14)
[2018-08-09] MEDS: Piperacillin/Tazobactam 2.25 GM in Sodium Chloride 0.9% 100 ML IVPB SCH ×4 (02:15→20:37)
[2018-08-09] MEDS: Sodium Chloride 0.9% 1,000 ML IV SCH ×2 (06:07→21:56)
[2018-08-09 06:33] LABS: Anion Gap 10 mmol/L (10-20); BUN (Urea Nitrogen) 14 mg/dL (9.8-20.1); Calc. Creatinine Clearance 59 mL/min (70-130); Calcium 9.3 mg/dL (7.8-10.44); Carbon Dioxide 22 mmol/L (23-31); Chloride 109 mmol/L (98-107); Estimated GFR-MDRD 46; Glucose 187 mg/dL (83-110); Potassium 4.3 mmol/L (3.5-5.1); Sodium 137 mmol/L (136-145)
--- NOTE | 2018-08-09 06:44 | PDOC.FM ---
- Subjective Subjective: Ms. Hsu reports some anxiety, difficulty sleeping, and rib pain today. she denies any syncope or dysuria. - Objective Vital Signs & Weight: Vital Signs (12 hours) Temp Pulse Resp BP Pulse Ox 08/09/18 03:30 97.9 F 84 18 179/70 H 96 08/08/18 23:50 98.1 F 84 18 179/91 H 100 08/08/18 20:10 96.4 F L 82 20 149/67 H 100 08/08/18 20:00 100 Weight Weight 92.351 kg I&O: 08/07/18 08/08/18 08/09/18 06:59 06:59 06:59 Intake Total 3850 Output Total 4250 Balance -400 Result Diagrams: 08/08/18 03:45 08/09/18 05:53 <Jony Mcclain - Last Filed: 08/09/18 09:19> - Objective Vital Signs & Weight: Vital Signs (12 hours) Temp Pulse Resp BP BP BP BP 08/09/18 11:05 97.6 F 77 16 178/76 H 08/09/18 07:24 97.7 F 86 16 218/93 H 185/84 H 181/81 H 08/09/18 03:30 97.9 F 84 18 179/70 H Pulse Ox 08/09/18 11:05 98 08/09/18 07:24 96 08/09/18 03:30 96 Weight Weight 92.351 kg I&O: 08/08/18 08/09/18 08/10/18 06:59 06:59 06:59 Intake Total 3850 Output Total 4250 Balance -400 Result Diagrams: 08/08/18 03:45 08/09/18 05:53 <Jojo Catalan - Last Filed: 08/09/18 12:34> Phys Exam - Physical Examination Constitutional: NAD HEENT: moist MMs Respiratory: no wheezing, no rales, no rhonchi, clear to auscultation bilateral Cardiovascular: RRR, no significant murmur, no rub Gastrointestinal: soft, non-tender, no distention Neurological: non-focal, moves all 4 limbs Psychiatric: normal affect Skin: no rash <Jony Mcclain - Last Filed: 08/09/18 09:19> Dx/Plan (1) Hypovolemic shock Code(s): R57.1 - HYPOVOLEMIC SHOCK Status: Acute (2) Syncope Code(s): R55 - SYNCOPE AND COLLAPSE Status: Acute (3) JAMAL (acute kidney injury) Code(s): N17.9 - ACUTE KIDNEY FAILURE, UNSPECIFIED Status: Acute (4) Diabetes type 2, controlled Code(s): E11.9 - TYPE 2 DIABETES MELLITUS WITHOUT COMPLICATIONS Status: Chronic (5) Hypertension Code(s): I10 - ESSENTIAL (PRIMARY) HYPERTENSION Status: Chronic - Plan Plan: 1. Septic/Hypovolemic shock, resolved - Improved BPs, WBC normalized, afebrile - Gentle fluid repletion. - broad spectrum abx, de-escalate with negative UCx/BCx this afternoon 2. Syncope w/ fall - Monitor on Tele. EKst Degree AV Block/Bradycardia - CT brain and neck WNL. - Pt A&O x3 during my encounter. - Cards does no consider this to be cardiac in origin - negative orthostatics - most likely from hypovolemia 2/2 sepsis 4. CAD - Continue home medications. No acute chest pain. 5. JAMAL - likely prerenal - UA WNL - Monitor renal function closely. 6. DM2 - SSI 7. HTN - resume home meds 8. Hypothyroidism - Resume home meds 9. Rib Contusion - Tylenol/lidocaine for pain. XR negative. DVT PPX: Lovenox Dispo: de-escalate abx, poss DC, follow up with cards outpt <Jony Mcclain - Last Filed: 08/09/18 09:19> Attending Addendum - Attending Addendum Date/Time: 08/09/18 1232 I personally evaluated the patient and discussed the management with Dr. Mcclain. I agree with the History, Examination, Assessment and Plan documented above with any addition or exceptions noted below - Patient without complaints. Feeling better. Afebrile VSS. 1) Syncope - possible secondary to dehydration/ hypovolemia; bradycardia resolved and appreciate cardiology's assistance/input. 2) Rib contusion- pain better with lidocaine patch. Plan to d/c home today. <Jojo Catalan - Last Filed: 08/09/18 12:34>
[2018-08-09] MEDS ORDERED: Nitroglycerin 0.4 MG TAB (25 Tab Bottle) SL PRN (08:28)
[2018-08-09] MEDS: Amiodarone 200 MG TAB PO SCH (08:29)
[2018-08-09] MEDS: Enoxaparin Sodium 40 MG/0.4 ML SYRINGE SC SCH (08:33)
[2018-08-09] MEDS: Lidocaine Patch Removal 1 EACH TOP SCH (08:35)
[2018-08-09] MEDS ORDERED: metFORMIN 500 MG TAB PO SCH (08:45)
[2018-08-09] MEDS: CeleCOXIB 100 MG CAP PO SCH ×2 (09:44→20:37)
[2018-08-09] MEDS: Gabapentin 300 MG CAP PO SCH ×2 (09:45→20:37)
[2018-08-09] MEDS: Furosemide 20 MG TAB PO SCH ×2 (09:45→20:38)
[2018-08-09] MEDS: DULoxetine 60 MG CAP PO SCH (09:45)
[2018-08-09] MEDS: Lisinopril 5 MG TAB PO SCH (09:45)
[2018-08-09] MEDS: Levothyroxine Sodium 75 MCG TAB PO SCH (11:10)
[2018-08-09] MEDS: HumaLOG 300 UNITS/3 ML VIAL SC PRN ×2 (11:35→20:39)
[2018-08-09] MEDS: cloNIDine 0.1 MG TAB PO PRN ×2 (12:51→23:55)
[2018-08-09] MEDS ORDERED: Nystatin Powder 15 GM BOT TOP PRN (13:20)
[2018-08-09 14:46] VITALS: BMI 30.9
[2018-08-09] MEDS: metFORMIN 500 MG TAB PO SCH (16:12)
--- NOTE | 2018-08-09 19:57 | PDOC.CTH ---
Cardiology Progress Note - Subjective No complaints except right rib pain. CT scan negative for RP bleed - Objective Vital Signs Temp Pulse Resp BP Pulse Ox 08/09/18 16:07 97.6 F 71 16 129/60 99 08/09/18 13:26 144/67 H 08/09/18 12:49 189/79 H 08/09/18 11:05 97.6 F 77 16 178/76 H 98 Admit Weight 213 lb 4.8 oz Weight 203 lb 9.6 oz 08/08/18 08/09/18 08/10/18 06:59 06:59 06:59 Intake Total 3850 1987 Output Total 4250 2300 Balance -400 -313 - Physical Examination General/Neuro: alert & oriented x3, NAD Neck: carotid US brisk, no JVD present Lungs: CTA, unlabored respirations Heart: PMI normal, RRR Abdomen: NT/ND, soft Extremities: + edema B - Labs Result Diagrams: 08/08/18 03:45 08/09/18 05:53 Troponin/CKMB CK-MB (CK-2) 2.4 ng/mL (0-6.6) 08/07/18 15:47 Troponin I Less than 0.010 ng/mL (< 0.028) 08/07/18 15:47 - Assessment/Plan Syncope right flank pain Sepsis CV status stable Unknown whether this is a fall or true syncope 1 degree AVB not felt to be a contributor at this point Recommend fu with Dr. Payne and have an event recorder setup
[2018-08-09] MEDS: Atorvastatin Calcium 40 MG TAB PO SCH (20:37)
[2018-08-09] MEDS: Vancomycin HCl 1.25 GM in Sodium Chloride 0.9% 250 ML 250 ML IVPB SCH (21:56)
[2018-08-09] MEDS ORDERED: Lidocaine 5% Patch TD SCH (23:45)
[2018-08-10] MEDS: Piperacillin/Tazobactam 2.25 GM in Sodium Chloride 0.9% 100 ML IVPB SCH (01:32)
[2018-08-10] MEDS: Levothyroxine Sodium 75 MCG TAB PO SCH (05:35)
--- NOTE | 2018-08-10 06:01 | PDOC.FM ---
- Subjective Subjective: Ms. Hsu is found sleeping comfortably, no new complaints today. She denies any urinary symptoms, syncope, or rib pain. - Objective Vital Signs & Weight: Vital Signs (12 hours) Temp Pulse Resp BP BP BP Pulse Ox 08/10/18 03:55 97.9 F 84 18 172/78 H 96 08/10/18 01:37 179/75 H 08/09/18 23:55 195/79 H 08/09/18 23:50 98.3 F 71 19 184/78 H 95 08/09/18 20:45 98 08/09/18 20:29 97.7 F 77 18 186/83 H 98 Weight Admit Weight 96.751 kg Weight 92.351 kg I&O: 08/08/18 08/09/18 08/10/18 06:59 06:59 06:59 Intake Total 3850 1987 Output Total 4250 2300 Balance -400 -313 Result Diagrams: 08/08/18 03:45 08/09/18 05:53 <Jony Mcclain - Last Filed: 08/10/18 07:49> - Objective Vital Signs & Weight: Vital Signs (12 hours) Temp Pulse Resp BP BP BP BP 08/10/18 10:19 198/79 H 08/10/18 09:02 84 193/84 H 08/10/18 08:58 84 193/84 H 08/10/18 08:00 97.4 F L 82 18 193/84 H 08/10/18 03:55 97.9 F 84 18 172/78 H 08/10/18 01:37 08/09/18 23:55 195/79 H 08/09/18 23:50 98.3 F 71 19 184/78 H BP Pulse Ox 08/10/18 10:19 08/10/18 09:02 08/10/18 08:58 08/10/18 08:00 99 08/10/18 03:55 96 08/10/18 01:37 179/75 H 08/09/18 23:55 08/09/18 23:50 95 Weight Admit Weight 96.751 kg Weight 92.351 kg I&O: 08/09/18 08/10/18 08/11/18 06:59 06:59 06:59 Intake Total 3850 3622 Output Total 4250 2300 Balance -400 1322 Result Diagrams: 08/08/18 03:45 08/09/18 05:53 <Jojo Catalan - Last Filed: 08/10/18 10:37> Phys Exam - Physical Examination Constitutional: NAD HEENT: moist MMs Respiratory: no wheezing, no rales, no rhonchi, clear to auscultation bilateral Cardiovascular: RRR, no significant murmur, no rub Gastrointestinal: soft, no distention Musculoskeletal: no edema Psychiatric: normal affect Skin: no rash <Jony Mcclain - Last Filed: 08/10/18 07:49> Dx/Plan (1) Hypovolemic shock Code(s): R57.1 - HYPOVOLEMIC SHOCK Status: Acute (2) Syncope Code(s): R55 - SYNCOPE AND COLLAPSE Status: Acute (3) JAMAL (acute kidney injury) Code(s): N17.9 - ACUTE KIDNEY FAILURE, UNSPECIFIED Status: Acute (4) Diabetes type 2, controlled Code(s): E11.9 - TYPE 2 DIABETES MELLITUS WITHOUT COMPLICATIONS Status: Chronic (5) Hypertension Code(s): I10 - ESSENTIAL (PRIMARY) HYPERTENSION Status: Chronic - Plan Plan: 1. Sepsis, resolved - Improved BPs, WBC normalized, afebrile - Gentle fluid repletion. - DC abx, negative UCx/BCx 2. Syncope w/ fall - Monitor on Tele. EKst Degree AV Block/Bradycardia - CT brain and neck WNL. - Pt A&O x3 during my encounter. - Cards does no consider this to be cardiac in origin - negative orthostatics - most likely from hypovolemia 2/2 sepsis 4. CAD - Continue home medications. No acute chest pain. 5. JAMAL - likely prerenal - UA WNL - Monitor renal function closely. 6. DM2 - SSI 7. HTN - restarted home meds, except coreg - added amlodipine - pressures continue to be high, consider increasing amlodipine today 8. Hypothyroidism - Resume home meds 9. Rib Contusion - Tylenol/lidocaine for pain. XR negative. DVT PPX: Lovenox Dispo: tighter BP control, then DC <Jony Mcclain - Last Filed: 08/10/18 07:49> Attending Addendum - Attending Addendum Date/Time: 08/10/18 1035 I personally evaluated the patient and discussed the management with Dr. Mcclain I agree with the History, Examination, Assessment and Plan documented above with any addition or exceptions noted below- Patient without complaints. Slept well. Afebrile VSS. A/P: 1) Syncope-resolved. 2) HTN- uncontrolled; started on amlodipine, continue lisinopril. Consider increasing imdur if remains high. PLan to D/C home if able to get BP improved. <Jojo Catalan - Last Filed: 08/10/18 10:37>
[2018-08-10] MEDS: DULoxetine 60 MG CAP PO SCH (08:54)
[2018-08-10] MEDS: Enoxaparin Sodium 40 MG/0.4 ML SYRINGE SC SCH (08:54)
[2018-08-10] MEDS: CeleCOXIB 100 MG CAP PO SCH ×2 (08:55→22:00)
[2018-08-10] MEDS: Gabapentin 300 MG CAP PO SCH ×2 (08:56→22:54)
[2018-08-10] MEDS: Furosemide 20 MG TAB PO SCH ×2 (08:57→22:54)
[2018-08-10] MEDS: Lisinopril 5 MG TAB PO SCH (08:58)
[2018-08-10] MEDS: metFORMIN 500 MG TAB PO SCH ×2 (08:58→17:31)
[2018-08-10] MEDS ORDERED: Amlodipine 5 MG TAB PO SCH (09:00)
[2018-08-10] MEDS: Amiodarone 200 MG TAB PO SCH (09:01)
[2018-08-10] MEDS: Lidocaine Patch Removal 1 EACH TOP SCH (09:03)
[2018-08-10] MEDS: Sodium Chloride 0.9% 1,000 ML IV SCH (09:04)
--- NOTE | 2018-08-10 10:23 | PDOC.CTH ---
<GoldieRhonda france - Last Filed: 08/10/18 10:20> Cardiology Progress Note - Subjective No complaints today. Tele stable. - Objective Vital Signs Temp Pulse Resp BP BP BP BP 08/10/18 10:19 198/79 H 08/10/18 09:02 84 193/84 H 08/10/18 08:58 84 193/84 H 08/10/18 08:00 97.4 F L 82 18 193/84 H 08/10/18 03:55 97.9 F 84 18 172/78 H 08/10/18 01:37 08/09/18 23:55 195/79 H 08/09/18 23:50 98.3 F 71 19 184/78 H BP Pulse Ox 08/10/18 10:19 08/10/18 09:02 08/10/18 08:58 08/10/18 08:00 99 08/10/18 03:55 96 08/10/18 01:37 179/75 H 08/09/18 23:55 08/09/18 23:50 95 Admit Weight 213 lb 4.8 oz Weight 203 lb 9.6 oz 08/09/18 08/10/18 08/11/18 06:59 06:59 06:59 Intake Total 3850 3622 Output Total 4250 2300 Balance -400 1322 - Physical Examination General/Neuro: alert & oriented x3 Lungs: CTA Heart: RRR Abdomen: NT/ND - Telemetry Telemetry Rhythm: SR - Labs Result Diagrams: 08/08/18 03:45 08/09/18 05:53 Troponin/CKMB CK-MB (CK-2) 2.4 ng/mL (0-6.6) 08/07/18 15:47 Troponin I Less than 0.010 ng/mL (< 0.028) 08/07/18 15:47 - Assessment/Plan 1. Recurrent syncope 2. Uncontrolled HTN 3. Unknown arrhythmia 4. CAD 5. 1st Degree AVB Syncope possibly related to dehydration. Plan for 3 week EVR set up through primary pain medicine physician Dr. Payne. History of unknown arrhythmia treated with Amio. ? AF vs VT? Continue Amio. Regarding HTN, uncontrolled and Norvasc started today. Could also increase nitrates given history of CAD. Not on bblocker either (possibly due to patient being on Amio). Will defer mgmt to primary team. <Himanshu Lovett - Last Filed: 08/11/18 10:19> Cardiology Progress Note - Objective Vital Signs Temp Pulse Resp BP BP Pulse Ox 08/11/18 08:59 191/77 H 08/11/18 08:56 191/77 H 08/11/18 08:00 96.6 F L 66 17 191/77 H 100 08/11/18 04:55 142/64 H 08/11/18 04:14 198/85 H 08/11/18 04:00 98.1 F 77 20 198/85 H 95 08/10/18 23:58 84 188/84 H 08/10/18 23:43 188/84 H Admit Weight 213 lb 4.8 oz Weight 203 lb 9.6 oz 08/10/18 08/11/18 08/12/18 06:59 06:59 06:59 Intake Total 3622 2458 500 Output Total 2300 6000 Balance 1322 -3542 500 - Labs Result Diagrams: 08/08/18 03:45 08/09/18 05:53 Troponin/CKMB CK-MB (CK-2) 2.4 ng/mL (0-6.6) 08/07/18 15:47 Troponin I Less than 0.010 ng/mL (< 0.028) 08/07/18 15:47 - Assessment/Plan Agree. No further recommendations. Pt now on tele for over 36 hours. If still needing hospitalization. ok to transfer to medical. Pt will need to fu with primary pain medicine physician in 1-2 weeks
[2018-08-10] MEDS: cloNIDine 0.1 MG TAB PO PRN ×3 (11:00→23:43)
[2018-08-10] MEDS: HumaLOG 300 UNITS/3 ML VIAL SC PRN ×2 (13:06→17:32)
[2018-08-10] MEDS: Lidocaine 5% Patch TD SCH (22:51)
[2018-08-10] MEDS: Atorvastatin Calcium 40 MG TAB PO SCH (22:54)
[2018-08-11] MEDS ORDERED: Labetalol HCl 100 MG/20 ML VIAL SLOW IVP PRN (00:54)
[2018-08-11] MEDS: Sodium Chloride 0.9% 1,000 ML IV SCH (01:43)
[2018-08-11] MEDS: cloNIDine 0.1 MG TAB PO PRN (04:14)
--- NOTE | 2018-08-11 06:02 | PDOC.FM ---
- Subjective Subjective: Ms. Hsu is sleeping comfortably in bed, she has no new complaints today. - Objective Vital Signs & Weight: Vital Signs (12 hours) Temp Pulse Resp BP BP Pulse Ox 08/11/18 04:14 198/85 H 08/11/18 04:00 98.1 F 77 20 198/85 H 95 08/10/18 23:58 84 188/84 H 08/10/18 23:43 188/84 H 08/10/18 20:15 98 Weight Admit Weight 96.751 kg Weight 92.351 kg I&O: 08/09/18 08/10/18 08/11/18 06:59 06:59 06:59 Intake Total 3850 3622 2040 Output Total 4250 2300 2800 Balance -400 1322 -760 Result Diagrams: 08/08/18 03:45 08/09/18 05:53 Phys Exam - Physical Examination Constitutional: NAD HEENT: moist MMs Respiratory: no wheezing, no rales, no rhonchi, clear to auscultation bilateral Cardiovascular: RRR, no significant murmur, no rub Gastrointestinal: soft, non-tender, no distention Musculoskeletal: no edema, pulses present Neurological: non-focal, moves all 4 limbs Psychiatric: normal affect Skin: no rash Dx/Plan (1) Hypovolemic shock Code(s): R57.1 - HYPOVOLEMIC SHOCK Status: Acute (2) Syncope Code(s): R55 - SYNCOPE AND COLLAPSE Status: Acute (3) JAMAL (acute kidney injury) Code(s): N17.9 - ACUTE KIDNEY FAILURE, UNSPECIFIED Status: Acute (4) Diabetes type 2, controlled Code(s): E11.9 - TYPE 2 DIABETES MELLITUS WITHOUT COMPLICATIONS Status: Chronic (5) Hypertension Code(s): I10 - ESSENTIAL (PRIMARY) HYPERTENSION Status: Chronic - Plan Plan: 1. Sepsis, resolved - Improved BPs, WBC normalized, afebrile - Gentle fluid repletion. - DC abx, negative UCx/BCx 2. Syncope w/ fall - Monitor on Tele. EKst Degree AV Block/Bradycardia - CT brain and neck WNL. - Pt A&O x3 during my encounter. - Cards does no consider this to be cardiac in origin - negative orthostatics - most likely from hypovolemia 2/2 sepsis 4. CAD - Continue home medications. No acute chest pain. 5. JAMAL. resolved - BUN/Cr at baseline - Monitor renal function closely. 6. DM2 - SSI 7. HTN - restarted home meds, except coreg - added amlodipine, increase imdur today - pressures continue to be high 8. Hypothyroidism - Resume home meds 9. Rib Contusion - Tylenol/lidocaine for pain. XR negative. DVT PPX: Lovenox Dispo: tighter BP control, then DC
[2018-08-11] MEDS: Levothyroxine Sodium 75 MCG TAB PO SCH (06:17)
[2018-08-11] MEDS: CeleCOXIB 100 MG CAP PO SCH (08:54)
[2018-08-11] MEDS: DULoxetine 60 MG CAP PO SCH (08:55)
[2018-08-11] MEDS: Furosemide 20 MG TAB PO SCH (08:55)
[2018-08-11] MEDS: Amiodarone 200 MG TAB PO SCH (08:55)
[2018-08-11] MEDS: metFORMIN 500 MG TAB PO SCH (08:56)
[2018-08-11] MEDS: Enoxaparin Sodium 40 MG/0.4 ML SYRINGE SC SCH (08:56)
[2018-08-11] MEDS: Lisinopril 5 MG TAB PO SCH (08:59)
[2018-08-11] MEDS: Lidocaine Patch Removal 1 EACH TOP SCH (09:00)
[2018-08-11] MEDS ORDERED: Amlodipine 10 MG TAB PO SCH (09:00)
[2018-08-11] MEDS: Gabapentin 300 MG CAP PO SCH (09:14)
[2018-08-11 11:01] VITALS: BP 145/66; TEMP 97
--- NOTE | 2018-08-11 11:59 | PRG ---
DATE OF SERVICE: 08/11/2018 Wen has been seen in consultation by the Cardiology Service. They have recommended an event record er to be set up with the patient's sheet rock applier as an outpatient. Otherwise, she will be ready for d ischarge.
[2018-08-11] MEDS: HumaLOG 300 UNITS/3 ML VIAL SC PRN (12:26)
--- NOTE | 2018-08-12 02:20 | DIS-2 ---
DATE OF ADMISSION: 08/07/2018 DATE OF DISCHARGE: 08/11/2018 RESIDENT: Jony Mcclain DO ADMITTING ATTENDING: Jojo Catalan MD DISCHARGE ATTENDING: Roderick Hartman MD CONSULT: Cardiology. PROCEDURES: 1. CT scan of abdomen and pelvis: Impression: No acute abnormalities of the abdomen or pelvis. 2. Cervical spine CT: Impression: No acute abnormalities noted. 3. Brain CT: Impression: No acute abnormalities noted. PRIMARY DIAGNOSIS: Syncope secondary to hypovolemia, resolved. SECONDARY DIAGNOSES: 1. Coronary artery disease. 2. Acute kidney injury, resolved. 3. Diabetes mellitus, type 2. 4. Hypertension. 5. Hypothyroidism. 6. Rib contusion. DISCHARGE MEDICATIONS: 1. Clonidine 0.1 mg p.o. p.r.n. 2. Metformin 1000 mg p.o. b.i.d. 3. Levothyroxine 75 mcg p.o. daily. 4. Omeprazole 40 mg p.o. daily. 5. Insulin NPH/regular insulin 15 units subcu b.i.d. a.c. 6. Lisinopril 5 mg p.o. daily. 7. Imdur 30 mg p.o. daily. 8. Ranexa 500 mg p.o. b.i.d. 9. Nitroglycerin 0.4 mg sublingual every 5 minutes p.r.n. for chest pain. 10. Duloxetine hydrochloride 60 mg p.o. daily. 11. Atorvastatin calcium 40 mg p.o. at bedtime. 12. Aspirin 81 mg p.o. daily. 13. Amiodarone 100 mg p.o. daily. 14. Furosemide 20 mg p.o. b.i.d. 15. Vitamin D3 of 5000 units p.o. daily. 16. Gabapentin 600 mg p.o. b.i.d. 17. Celecoxib 200 mg p.o. b.i.d. 18. Harned 5/325 one-half of a tab p.o. q.6 hours p.r.n. 19. Flexeril 10 mg p.o. t.i.d. 20. Nystatin powder one application topical b.i.d. p.r.n. for 2 weeks. 21. Amlodipine 10 mg p.o. daily. DISCONTINUED MEDICATIONS: Coreg 3.125 mg p.o. b.i.d. HISTORY OF PRESENT ILLNESS AND HOSPITAL COURSE: Patient was initially admitted with suspicion for sepsis secondary to urinary tract infection versus bacteremia with hypotension in the 70s/80s and tachycardia. Patient was given fluids and cultures were taken of blood in urine. Patient reported syncope in the outpatient setting, not feeling well in general malaise. Four days ago, she fell with one of the syncopal episodes and was found down covered in feces. She reports this occurs random times throughout the day. She denies chest pain at this time, leg edema, dysuria, dizziness, focal weakness. She was recently treated for an abscess on her pannus this previous week by Dr. Hansen. She currently admits to rib pain, but denies dizziness or other symptoms. In the ED, she had a liter of fluid and her blood pressure immediately improved to 107/71. Throughout her hospital stay, her blood pressure remained elevated to the point of above goal where her blood pressure soon became the issue needing to be resolved before she could be discharged. Her medications were increased. Blood pressure was stabilized. She was considered safe to discharge and was without any complaints. DISPOSITION: Stable. DISCHARGE INSTRUCTIONS: 1. Location: Home with home health. 2. Diet: Heart healthy. 3. Activity: As tolerated. 4. Followup: Follow up with Dr. Georges Vasquez within a day, loop recorder to be placed by Cardiology [facility]
== END 2018-08-11 14:33 | disposition home health service (06) | DRG 871 ==
LOC: ERS 13:41 → 2NO 16:45
PROVIDERS: ADMIT Family Medicine; ATTEND Family Medicine
DX: A41.9 Sepsis, unspecified organism (principal); R65.21 Severe sepsis with septic shock; R57.1 Hypovolemic shock; N17.9 Acute kidney failure, unspecified; N39.0 Urinary tract infection, site not specified; I42.9 Cardiomyopathy, unspecified; E11.9 Type 2 diabetes mellitus without complications; I25.10 Atherosclerotic heart disease of native coronary artery without angina pectoris; I10 Essential (primary) hypertension; M79.3 Panniculitis, unspecified; I44.0 Atrioventricular block, first degree; E03.9 Hypothyroidism, unspecified; E78.5 Hyperlipidemia, unspecified; T14.8XXA Other injury of unspecified body region, initial encounter; W19.XXXA Unspecified fall, initial encounter; Y92.009 Unspecified place in unspecified non-institutional (private) residence as the place of occurrence of the external cause; R55 Syncope and collapse; M48.00 Spinal stenosis, site unspecified; Z79.4 Long term (current) use of insulin; Z79.82 Long term (current) use of aspirin; Z82.49 Family history of ischemic heart disease and other diseases of the circulatory system
CPT/HCPCS: 36415; 36416; 51701; 70450; 72125; 74176; 80048; 80053; 81003; 82550; 82553; 83605; 83690; 83935; 84146; 84300; 84484; 85007; 85025; 85027; 87040; 87086; 90471; 90670; 93005; 94760; 96360; A4353; G0009; J1650; J1885; J2270; J2543; J3370; J7050

== ENCOUNTER 2019-06-17 06:33 | Emergency (ER) | payer MEDICARE ==
[2019-06-17 07:05] LABS: #Eosinphils 0.5 thou/uL (0.0-0.7); #Lymphocytes 1.6 thou/uL (1.20-3.40); #Monocytes 0.7 thou/uL (0.11-0.59); #Neutrophils 5.4 thou/uL (1.40-6.50); %Basophils 0.4 % (0.0-1.0); %Lymphocytes 19.5 % (21.0-51.0); %Monocytes 8.3 % (0.0-10.0); %Neutrophils 65.8 % (42.0-75.0); Hemoglobin 10.4 g/dL (12.0-16.0); Mean Corpuscular Hemoglobin 29.4 pg (27.0-31.0); Mean Corpuscular Volume 91.8 fL (78.0-98.0); Mean Platelet Volume 6.8 fL (7.4-10.4); Platelet Count 232 thou/uL (130-400); RBC Distribution Width 13.7 % (11.5-14.5); Red Blood Cell (RBC) Count 3.53 mill/uL (4.20-5.40); White Blood Cell (WBC) Count 8.2 thou/uL (4.8-10.8)
[2019-06-17 07:33] LABS: CKMB 2.5 ng/mL (0-6.6)
--- NOTE | 2019-06-17 07:57 | RAD ---
Exam: Chest one view HISTORY:Chest pain, short of breath and diaphoresis Comparison: 01/12/2018 FINDINGS: Lungs: Interstitial opacities, bilaterally. Cardiac silhouette:Persistent enlargement of cardiac silhouette Pulmonary vessels: Mild engorgement Pleural Spaces: Clear Pneumothorax: None Stable operative change with multiple plate and screws overlying the chest. Osseous abnormalities: None of acuity. IMPRESSION: Decompensated CHF.
[2019-06-17 09:01] LABS: ALT (SGPT) 53 U/L (8-55); AST (SGOT) 35 U/L (5-34); Albumin 4.1 g/dL (3.4-4.8); Alkaline Phosphatase 80 U/L (40-150); Anion Gap 17 mmol/L (10-20); BUN (Urea Nitrogen) 26 mg/dL (9.8-20.1); Bilirubin, Total 0.3 mg/dL (0.2-1.2); Calc. Creatinine Clearance 0 mL/min (70-130); Calcium 9.8 mg/dL (7.8-10.44); Carbon Dioxide 22 mmol/L (23-31); Chloride 103 mmol/L (98-107); Estimated GFR-MDRD 32; Globulin 3.2 g/dL (2.4-3.5); Glucose 177 mg/dL (83-110); Potassium 4.7 mmol/L (3.5-5.1); Protein, Total 7.3 g/dL (6.0-8.3); Sodium 137 mmol/L (136-145)
[2019-06-17] MEDS ORDERED: Furosemide 40 MG/4 ML VIAL ONE (09:57)
--- NOTE | 2019-06-20 14:32 | EKG ---
Test Reason : Blood Pressure : / mmHG Vent. Rate : 086 BPM Atrial Rate : 088 BPM P-R Int : 000 ms QRS Dur : 102 ms QT Int : 418 ms P-R-T Axes : 000 101 088 degrees QTc Int : 500 ms Atrial fibrillation with premature ventricular or aberrantly conducted complexes Possible Anterolateral infarct , age undetermined Abnormal ECG Confirmed by JEN QUINONES ([id number]), food expeditor CESAR GIL ([id number]) on 06/20/2019 2:32:33 PM Referred By: Confirmed By:JEN QUINONES
== END 2019-06-17 14:40 | disposition short-term general hospital (02) ==
LOC: ERS 06:33
DX: I11.0 Hypertensive heart disease with heart failure (principal); I50.9 Heart failure, unspecified; I25.10 Atherosclerotic heart disease of native coronary artery without angina pectoris; I25.2 Old myocardial infarction; E11.9 Type 2 diabetes mellitus without complications; E03.9 Hypothyroidism, unspecified; E78.5 Hyperlipidemia, unspecified; E78.00 Pure hypercholesterolemia, unspecified; J45.909 Unspecified asthma, uncomplicated; F32.9 Major depressive disorder, single episode, unspecified; F17.220 Nicotine dependence, chewing tobacco, uncomplicated; Z79.899 Other long term (current) drug therapy; Z79.82 Long term (current) use of aspirin; Z79.4 Long term (current) use of insulin
CPT/HCPCS: 36415; 71045; 80053; 82553; 83880; 84484; 85025; 93005; 96374; J1940

== ENCOUNTER 2019-09-07 10:58 | Day surgery (SDC) | payer MEDICARE ==
[~2019-09-07 10:58] MED LIST: Lidocaine 1% PF 5 ML VIAL ONE
[2019-09-07] MEDS ORDERED: Propofol 500 MG/50 ML VIAL ONE (13:09)
[2019-09-07] MEDS ORDERED: Famotidine/PF 20 mg/2ml Vial ONE (13:10)
--- NOTE | 2019-09-07 14:36 | MRI ---
LUMBAR SPINE MRI WITHOUT CONTRAST: DATE: 09/07/2019. COMPARISON: 06/07/2017. HISTORY: Back pain, spondylolisthesis. TECHNIQUE: Multiplanar multisequence MR imaging of the lumbar spine without contrast. FINDINGS: Sagittal STIR imaging demonstrates no focal area of osseous marrow edema. On the basis of 5 lumbar-type vertebral bodies, the conus medullaris terminates at the L1-2 level. T12-L1: Disc desiccation and minimal disc bulge. No significant central canal or neural foraminal kenney nosis. L1-2: There is disc space narrowing and disc desiccation with mild degenerative endplate change. Ther e is disc bulge with anterior osteophyte formation and bilateral facet hypertrophy. No significant central canal stenosis. There is mild right and moderate left neural foraminal stenosi s. L2-3: There is mild bilateral facet hypertrophy. There is disc space narrowing and disc desiccation w ith mild disc bulge. There is mild bilateral neural foraminal stenosis. No significant central canal stenosis. L3-4: Mild bilateral facet hypertrophy. There is disc desiccation. No significant central canal or ne ural foraminal stenosis. L4-5: There is disc space narrowing and disc desiccation with mild disc bulge and mild anterolisthesi s measuring approximately 3-4 mm. These findings are stable when compared to the prior examination. Stable vacuum disc formation. There is severe bilateral facet hypertrophy with fluid within bilateral facet joints, similar when co mpared to the prior exam. There is severe right-sided neural foraminal stenosis and mild left-sided neural foraminal stenosis, unchanged when compared to the 2017 examination. No significant central ca nal stenosis. The patient is status post hemilaminectomy on the right at L5. L5-S1: Bilateral facet hypertrophy. No central canal stenosis. Moderate/severe right and moderate lef t neural foraminal stenosis, similar when compared to the prior examination. Imaged retroperitoneal structures appear grossly unremarkable. IMPRESSION: Multilevel lumbar spine degenerative change as detailed above. Transcribed Date/Time: 09/07/2019 2:49 PM
== END 2019-09-07 15:16 | disposition home or self-care (01) ==
LOC: SDC/OP 10:58
PROVIDERS: ATTEND Specialist
DX: M43.16 Spondylolisthesis, lumbar region (principal); M48.061 Spinal stenosis, lumbar region without neurogenic claudication; M48.07 Spinal stenosis, lumbosacral region; M25.78 Osteophyte, vertebrae; E11.9 Type 2 diabetes mellitus without complications; M19.90 Unspecified osteoarthritis, unspecified site; E03.9 Hypothyroidism, unspecified; I25.10 Atherosclerotic heart disease of native coronary artery without angina pectoris; I25.5 Ischemic cardiomyopathy; I50.32 Chronic diastolic (congestive) heart failure; I11.0 Hypertensive heart disease with heart failure; F32.9 Major depressive disorder, single episode, unspecified; K21.9 Gastro-esophageal reflux disease without esophagitis; Z79.01 Long term (current) use of anticoagulants; Z79.1 Long term (current) use of non-steroidal anti-inflammatories (NSAID); Z79.4 Long term (current) use of insulin; Z79.51 Long term (current) use of inhaled steroids; Z79.82 Long term (current) use of aspirin; Z79.899 Other long term (current) drug therapy; Z95.1 Presence of aortocoronary bypass graft; Z95.5 Presence of coronary angioplasty implant and graft; Z88.8 Allergy status to other drugs, medicaments and biological substances
CPT/HCPCS: 36416; 72148; J2001; J2704; S0028

== ENCOUNTER 2020-05-20 12:31 | Outpatient (CLI) | payer MEDICARE ==
--- NOTE | 2020-05-20 14:03 | CT ---
Exam: CT lumbar spine without contrast HISTORY: Low back pain times many years. COMPARISON: None Correlation: MRI lumbar spine 09/07/2019 FINDINGS: No paraspinal mass, lymphadenopathy or hematoma. Atherosclerosis of a nonaneurysmal aorta. 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 No solid organ injury There is diffuse bony mineralization. 5 lumbar type vertebra. Lumbar spine vertebral body height is maintained. No fracture. No spondylolysis. Spondylolisthesis: 4.2 mm of anterolisthesis of L4 for upon L5 Vacuum disc phenomenon at L1-L2, L2-L3, L4-L5 and L5-S1. Presacral fat is preserved. Visualized sacrum is intact. Vacuum joint phenomenon in bilateral sacroil iac joints. Limited evaluation the contents of the central spinal canal and neural foramina due to technique T11-T12: No significant central canal stenosis. Mild bilateral foraminal narrowing T12-L1: No posterior disc abnormality. No significant central canal stenosis. Neural foramina are pat ent bilaterally L1-L2: Vacuum disc phenomenon. Broad-based disc bulge. No significant central canal stenosis. Moderat e right and moderate to severe left foraminal narrowing L2-L3: Vacuum disc phenomenon. Broad-based disc bulge with mild central canal stenosis. Moderate bila teral neural foraminal narrowing L3-L4: Adequate disc hydration. Broad-based disc bulge minimally contacts the ventral thecal sac. Mil d ligament flavum thickening. No significant central canal stenosis. Neural foramina are mildly narrowed bilaterally L4-L5: Vacuum disc phenomenon. Right hemilaminectomy defect. Broad-based disc bulge abuts the thecal sac. Material encroaches upon bilateral subarticular zones with partial obscuration bilateral traversing L4 V nerve roots. Moderate to severe right and left neural foraminal narrowing L5-S1: Vacuum disc phenomenon. Severe loss of disc space height. No significant central canal stenosi s. Moderate to severe bilateral neural foraminal narrowing. IMPRESSION: 1. No fracture 2. Multilevel degenerative changes of the lumbar spine as described above. Transcribed Date/Time: 05/20/2020 2:22 PM
== END 2020-05-20 12:32 | disposition home or self-care (01) ==
LOC: SCSCT 12:31
PROVIDERS: ATTEND Surgery
DX: M47.26 Other spondylosis with radiculopathy, lumbar region (principal)
CPT/HCPCS: 72131